=== PATIENT | female | born 1980 | race Caucasian/White ===

== ENCOUNTER 2023-05-21 13:22 | Emergency (ER) | payer OTHER, SELFPAY ==
[2023-05-21 13:24] VITALS: BP 153/106; PULSE 90; RESP 18; TEMP 36.6; O2SAT 98
--- NOTE | 2023-05-21 14:46 | ED.BACK ---
HPI - Back Pain/Injury General Chief Complaint: Back Pain/Injury <Luana García PA-C - Last Filed: 05/21/23 16:32> Stated Complaint: severe back pain <HONEY Teran Last Filed: 05/21/23 16:32> Time Seen by Provider: 05/21/23 13:50 <Luana García PA-C - Last Filed: 05/21/23 16:32> History of Present Illness HPI Narrative: 42-year-old female with a history of s/p hysterectomy and chronic back pain presents to emergency department for acute on chronic low back pain. Patient states she has been treated by her PCP for while now with tizanidine which helps sometimes makes her sleepy. States last night the pain became significantly worse which prompted her to come to the ER today. She is reporting pain diffusely throughout her low back and radiates down the lateral aspect of her left leg to her knee. States she is scheduled on 05/29/[address] [facility]. She denies numbness in her groin, incontinence of her bowel or bladder, urinary retention. She is able ambulate. Denies dysuria or hematuria, fever, IV drug use, use of immunosuppressants. Denies recent injury trauma to her back. She has not taken anything today for pain. Patient states she had an MRI performed on 03/17/2023 ordered by her PCP. She has her My Chart available and is able to pull up results which are as followed: Impression 1. Multilevel lumbar spondylosis without significant narrowing of the spinal canal 2. Moderate to severe bilateral neural foraminal stenosis at L5-S1. There is severe facet osteoarthritis at these levels with reactive bone marrow <HONEY Teran Last Filed: 05/21/23 16:32> Related Data Allergies/Adverse Reactions: Allergies Allergy/AdvReac Type Severity Reaction Status Date / Time No Known Allergies Allergy Verified 05/21/23 13:30 <HONEY Teran Last Filed: 05/21/23 16:32> Review of Systems Review of Systems: CONSTITUTIONAL: Denies fever, chills, or sweats. EYES: Denies visual changes, redness, or discharge. ENT: Denies rhinorrhea, congestion, sore throat, or otalgia. CARDIOVASCULAR: Denies chest pain, palpitations, or edema. RESPIRATORY: Denies cough or dyspnea. GASTROINTESTINAL: Denies abdominal pain, nausea, vomiting, or diarrhea. GENITOURINARY: Denies dysuria or hematuria. SKIN: Denies rash or itching. MUSCULOSKELETAL: See HPI NEUROLOGIC: Denies headache, numbness, or weakness. PSYCHIATRIC: Denies anxiety or depression. <Luana García PA-C - Last Filed: 05/21/23 16:32> Exam Narrative: GENERAL: Well-appearing, well-nourished, and in no acute distress. HEAD: Normocephalic, atraumatic. NECK: Supple. BACK: Tenderness to the lumbar spine and throughout the lower back and paraspinous muscles. No overlying skin changes, step-offs or deformities. No overlying rashes. CHEST: Clear to auscultation. No respiratory distress. HEART: Regular rate and rhythm. No murmur heard. Normal peripheral pulses. ABDOMEN: Soft, nontender, nondistended, normal active bowel sounds. EXTREMITIES: Normal range of motion. No edema. SKIN: Warm, dry, no rash. NEURO: No focal deficits. Alert and oriented x3. No saddle anesthesia, sensation intact throughout. Dorsiflexion, plantar flexion, knee extension and flexion, hip extension 5/5 bilaterally. Left EHL strength 4/5. Right EHL is 5/5. DP pulses 2+ bilaterally. <Luana García PA-C - Last Filed: 05/21/23 16:32> Course DELIVERER MERCHANDISE/PA Physician Supervision I agree with midlevel documentation; I performed the medical decision making component of this evaluation. <Lyubov Pinto MD - Last Filed: 05/21/23 20:19> Vital Signs Vital signs: Vital Signs Temperature 98 F 05/21/23 13:24 Pulse Rate 90 05/21/23 13:24 Respiratory Rate 18 05/21/23 13:24 Blood Pressure 153/106 H 05/21/23 13:24 Pulse Oximetry 98 05/21/23 13:24 Oxygen Delivery Room Air 05/21/23 13:24 Temperature 98
[2023-05-21] MEDS: ACETAMINOPHEN 500 MG TABLET 1000 MG PO (14:52)
[2023-05-21] MEDS: dexAMETHasone SOD PHOS INJ 10 MG/ML 1 ML VIAL IM (14:52)
[2023-05-21] MEDS: KETOROLAC 30 MG/ML VIAL (*BKC) IM (14:52)
[2023-05-21] MEDS: CYCLOBENZAPRINE HCL 10 MG TABLET PO (14:52)
[2023-05-21] MEDS: LIDOCAINE 5% PATCH 1 PATCH TRANSDERM (15:07)
[2023-05-21 15:12] LABS: Appearance Urine Cloudy (Clear); Bacteria Urine 1+ /hpf; Bilirubin Urine Negative (Negative); Blood Urine Negative (Negative); Color Urine Yellow (Yellow); Glucose Urine UA Negative (Negative); Ketones Urine Trace mg/dL (Negative); Leukocyte Esterase Ur Negative LEU/UL (Negative); Nitrate Urine Negative (Negative); Non Pathogenic Casts 0-2; Protein Urine Negative (Negative); RBC Urine 0-2 /hpf (0-2); Specific Grav Ur 1.025 (1.001-1.035); Squamous Epithelial Cell Urine Few /hpf (Few); Urobilinogen Urine 0.2 mg/dL (<2.0); WBC Urine 0-5 /hpf (0-3)
[2023-05-21 15:54] LABS: Add Urine Microscopic? YES
[2023-05-21 16:39] VITALS: BP 142/87; PULSE 78; RESP 20; O2SAT 98
== END 2023-05-21 16:39 | disposition home or self-care (01) ==
PROVIDERS: Emergency Provider Physician Assistant
DX: M54.16 Radiculopathy, lumbar region (principal); Z90.710 Acquired absence of both cervix and uterus
CPT/HCPCS: 81001; 81025; 96372; 99284; A9270; J1100; J1885

== ENCOUNTER 2025-02-01 08:00 | Outpatient (CLI) | payer OTHER, SELFPAY ==
--- OUTSIDE RECORDS SUMMARY | 2023-08-13 07:30 | XMS_ITS ---
Author Organization [facility] Address [address] [address] Care Team Providers Care Cleaner Signs Name Role Phone WILL RICHMOND Primary Care Provider Unavailabl IAM Zuleta Unavailable [phone] FERMIN CASTANO Unavailable Unavailable zZachary, Carolyne Unavailable [phone] Encounters Encounter Location Date Provider Diagnosis [facility] [place] [address] [address] 08/13/2023 Carolyne zzzHolt Plan Of Treatment No Information Progress Notes * Iona RUSHINGOB: 0 (44 yo F)Acc No.[id number]:08/13/2023 Progress Notes Patient: Sparkle MENDEZ Provider: Ti Villalta NP :1980 A ge:42 Y S ex:Female Date:08/13/2023 Address:[place], [facility] Pcp:WILL RICHMOND Subjective: * Chief Complaints: * * Medical History: Objective: * Vitals: Assessment: Plan: * Treatment: * * Electronic signature of Wilfred Montoya on 02/01/2025 at 08:16 AM PAINTER SHIPYARD Sign off status: Pending * Provider: Ti Villalta NP Date: 0 08/13/2023 Generated for Leticia ng/Bryang/eTransmitting on: 1 04/04/2024 08:16 AM PAINTER SHIPYARD
--- OUTSIDE RECORDS SUMMARY | 2025-02-01 08:17 | XMS_ITS | Patient Health Record ---
Author Organization [facility] [employer] [facility] Address [address] [place] [address] Care Team Providers Care Assembly Detailer Name Role Phone WILL RICHMOND Primary Care Provider IAM Cuevas Unavailable [phone] FERMIN CASTANO Unavailable Unavailable Allergies No Known Allergies Reason For Referral No Information Medications Medication SIG (Take, Route, Fr equency, Duration) Notes Start Date End Date Status tiZANidine HCl 4 MG 1 capsule as needed Orally every 12 hours PRN Active Problems Problem Type SNOMED Code ICD Code Onset Dates Problem Status W/U Status Risk Notes Problem Sacroiliitis (41561783) Sacroiliitis (M46.1) Active confirmed Problem Lumbar radiculopathy (229565124) Lumbar radiculopathy (M54.16) Active confirmed Problem Lumbar spondylosis (444759387) Lumbar spondylosis (M47.816) Active confirmed Problem Pain in left leg (968037414) Left leg pain (M79.605) Active confirmed Plan Of Treatment No Information Insurance Providers Payer Name Payer Address Payer Phone Subscriber Number Group Number Insured Name Patient Relationship to Insured Coverage Start Date Coverage End Date [facility] [address] [place] [address] [id number] Sparkle Rushing Self - patient is the insured
--- OUTSIDE RECORDS SUMMARY | 2025-02-01 08:17 | XMS_ITS | Encounter Summary ---
Author Organization [facility] Address [address] [place] [address] Care Team Providers Care Air Table Operator Name Role Phone Vijay Mejia MD Primary Care Provider [phone] Reason for Visit * Reason Comments Medication Assistance Encounter Details Date Type Department Care Team (Late st Contact Info) Description 05/16/2023 Telephone [facility] Internal Medicine [address] [phone] Vijay Mejia MD [address] [place] [address] Medication Assistance Social History Tobacco Use Types Packs/Day Years Used Date Smoking Tobacco: Never Passive Smoke Exposure: Never Smokeless Tobacco: Never Alcohol Use Standard Drinks/Week Comments No 0 (1 standard drink = 0.6 oz pur e alcohol) Comments Unknown Sex and Gender Information Value Date Recorded Sex Assigned at Not on file 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 Topic: Medication Request >> May 16, 2023 3:33 PM Shandrea T wrote: Caller is requesting: Medication Question from Patient (Not involving new prescription or refill) Caller: Sparkle Rushing Patient/Caregiver Callback Number: [phone] Medication (Ask patient/caregiver to spell if possible): tirzepatide, weight loss, (Zepbound) 2.5 mg/0.5 mL Pen Injector Call Notes: patient called in and stated that her insurance told her she would need to go up a dosesince she been on it a month Preferred pharmacy: [facility] [address] [facility], [place] - [address] [place] [address] [place] [address] Hours: Not open 24 hour documented in this encounter Plan of Treatment Upcoming Encounters Date Type Department Care Team (Late st Contact Info) Description 06/03/2025 2:40 PM CDT Office Visit [facility] Care [facility] [address] [place] [address] [address] [place] [phone] Vijay Mejia MD [address] [place] [phone] documented as of this encounter Visit Diagnoses Not on filedocumented in this encounter Care Teams Air Table Operator Relationship Specialty Start Date End Date Vijay Mejia MD [address] [place] [id number] PCP - General Internal Medicine 01/29/12 documented as of this encounter
--- OUTSIDE RECORDS SUMMARY | 2025-02-01 08:17 | XMS_ITS | Encounter Summary ---
Author Organization [facility] Address 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 Gender Identity Not on file Sexual Orientation Not on file documented as of this encounter Plan of Treatment Upcoming Encounters Date Type Department Care Team (Late st Contact Info) Description 06/03/2025 2:40 PM CDT Office Visit [facility] Primary Care [address] [place] [address] [place] [address] [address] documented as of this encounter Procedures Procedure Name Priority Date/Time Associated Diagnosis Comments FIBRONECTIN Stat 06/15/2008 2:0 0 PM CDT documented in this encounter Results * FIBRONECTIN (06/15/2008 2:00 PM CDT) GESTATIONAL AGE, AMNIO FLD 27.1 Weeks [facility] FIBRONECTIN Negative Negative [facility] Comment:called Eduardo 9 17:08 & faxed Vaginal 06/15/2008 2:00 PM CDT 06/15/2008 4:13 PM CDT Narrative INTERFACE SYSTEM - 06/15/2008 5:09 PM CDT fax [phone] us [facility] Yy BODY FLUIDS AND STOOLS Final Res ult INTERFACE SYSTEM Refer to clinic/hospital department [facility] CLIA# [id number] [address] [place] [address] documented in this encounter Visit Diagnoses Not on filedocumented in this encounter Care Teams Jewel Supervisor Relationship Specialty [place] [address] [place] [address] PCP - General Internal Medicine 01/29/12 documented as of this encounter
--- OUTSIDE RECORDS SUMMARY | 2025-02-01 08:17 | XMS_ITS | Encounter Summary ---
Author Organization [facility] Address [address] [place] [address] Care Team Providers Care Facility Maintenance Helper Name Role Phone Vijay Mejia MD Primary Care Provider [phone] Reason for Visit * Reason Comments Question Encounter Details Date Type Department Care Team (Late st Contact Info) Description 03/27/2023 Telephone [facility] Internal Medicine [address] [address] Vijay Mejia MD [address] [place] [address] Question Social History Tobacco Use Types Packs/Day Years Used Date Smoking Tobacco: Never Passive Smoke Exposure: Never Smokeless Tobacco: Never Alcohol Use Standard Drinks/Week Comments No 0 (1 standard drink = 0.6 oz pur e alcohol) Comments Unknown Sex and Gender Information Value Date Recorded Sex Assigned at Not on file 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 Topic: Patient or Caregiver Communication Request >> Mar 27, 2023 11:14 AM Joan Garner wrote: Patient or Caregiver insisting that a message be sent to PCP Patient/Caregiver Callback Number: [phone] (home) [phone] (work) Call Notes: Patient called back to conform that 03/19 and 03/27 were added to her [facility] paperwork. Please call patient back. TH AND SAFETY INSTRUCTOR documented in this encounter Plan of Treatment Upcoming Encounters Date Type Department Care Team (Late st Contact Info) Description 06/03/2025 2:40 PM CDT Office Visit [facility] [address] [facility] [address] [place] [address] Vijay Mejia MD [address] [place] [phone] documented as of this encounter Visit Diagnoses Not on filedocumented in this encounter Care Teams Facility Maintenance Helper Relationship Specialty Start Date End Date Vijay Mejia MD [address] [place] [address] [phone] PCP - General Internal Medicine 01/29/12 documented as of this encounter
--- OUTSIDE RECORDS SUMMARY | 2025-02-01 08:17 | XMS_ITS | Patient Health Record ---
Author Organization [facility] Address [address] [facility] [address] [place] [address] Support Name Relationship Address Phone Sparkle Rushing Guarantor Unknown [phone] Allergies No Known Allergies Reason For Referral No Information Medications Medication SIG (Take, Route, Fr equency, Duration) Notes Start Date End Date Status Percocet 10-325 MG 1 tablet PO QID PRN Oral Active HYDROmorphone HCl 4 MG take 1 tablet by oral route 4 times a day MAX 4 PILLS A DAY Oral 4 Active Immunizations Vaccine Route Administration Date Status Comme nts Tdap IM Intramuscular 09/19/2015 Administered Problems Problem Type SNOMED Code ICD Code Onset Dates Problem Status W/U Status Risk Notes Problem Hypothyroidism (82279679) Hypothyroidism , unspecified (E03.9) Active confirmed Problem Disorder of thyroid gland (91105448) Disorder of thyroid, unspecified (E07.9) Active confirmed Problem Recurrent major depression in remission (85845237) Major depressive disorder, recurrent, in partial remission (F33.41) Active confirmed Problem 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 Problem Chronic pain syndrome (383761635) Chronic pain syndrome (G89.4) Active confirmed Dr. Lin. Sciatic nerve pain Problem Sciatica (10406668) Sciatica, unspecified side (M54.30) 013 Active confirmed SInce she had a baby she is having pain in the low back. Been managed with injections and now on pain medicine. Plan Of Treatment No Information Insurance Providers Payer Name Payer Address Payer Phone Subscriber Number Group Number Insured Name Patient Relationship to Insured Coverage Start Date Coverage End Date [employer] [address] [address] [place] [address] [id number] Sparkle Rushing Self - patient is the insured Medical (General) History Surgical History Surgery Date(Month/Year) Ceasarean section, Date of Procedure: 2015-09-19 carpal tunnel surgery: both hands. Dr. [place], Date of Procedure: 2015-09-19
--- OUTSIDE RECORDS SUMMARY | 2025-02-01 08:17 | XMS_ITS | Clinical Summary ---
Author Organization [facility] Address [address] [place] [address] Care Team Providers Care Tung Nut Grower Name Role Phone Vijay Mejia MD Primary Care Provider [phone] Allergies Active Allergy Reactions Criticality Noted Date Comments Bupropion Rash Low 09/14/2009 Fluoxetine Other (See Comments) 08/08/2009 FATIGUE Medications albuterol sulfate HFA 90 mcg/actuation aerosol inhalerIndicati ons:RTI (respiratory tract infection) Take 2 Puffs by inhalation every 6 hours as needed for Shortness of Breath. 6.7 Gram 2 3 Active Additional Information Patient not taking.Reported on 03/18/2023 fluconazole (DIFLUCAN) 150 mg tabletIndicatio ns:RTI (respiratory tract infection) Take 1 Tablet (150 mg) by mouth daily. For yeast infection 2 Tablet 2 3 Active Additional Information Patient not taking.Reported on 03/18/2023 acetaminophen (TYLENOL) 500 mg tablet Take 500 mg by mouth every 6 hours as needed. Active cyclobenzaprine (FLEXERIL) 10 mg tablet 10 MG ORALLY THREE TIMES A DAY NEEDED FOR MUSCLE SPASM 4 Active semaglutide, weight loss, (WEGOVY) 0.5 mg/0.5 mL Pen InjectorIndicat ions:Obesity (BMI 30.0-34.9) Inject 0.5 mL (0.5 mg) by subcutaneous injection every 7 days. 2 mL 11 4 Active semaglutide, weight loss, (WEGOVY) 1 mg/0.5 mL Pen Injector Inject 0.5 mL (1 mg) by subcutaneous injection every 7 days. 2 mL 11 5 Active Active Problems Problem Noted Date Diagnosed Date Lumbar spinal stenosis 03/27/2023 Overview (03/27/2023): 04/06 LUMBAR MRI-> Moderate to severe bilateral neural foraminal stenosis at L5- S1. There is severe facet osteoarthritis at this levels with reactive marrow edema. ->ARR NSURG Sciatica of left side 03/18/2023 Mild intermittent asthma without complication Influenza vaccination declined by patient 2021 History of herpes genitalis 02/16/2019 Chronic back pain 06/01/2014 Overview (06/21/2014): 06/25 PAIN CTR RECORDS RECEIVED, THINNED, SCANNED (OVs ONLY) Allergic rhinitis 06/01/2014 Resolved Problems Problem Noted Date Diagnosed Date Resolved Date Acquired hypothyroidism 06/11/2023 04/2 04/2024 Hirsutism 06/11/2023 06/03/2024 Moderate episode of recurren t major depressive disorder 06/11/2023 06/03/2024 Non morbid obesity due to excess calories 06/11/2023 06/03/2024 Rosacea, acne 03/18/2023 06/03/2024 COVID-19 vaccination declined 02/22/2021 06/03/2024 2019 novel coronavirus detected 05/25/2020 06/15/2020 Overview (05/25/2020): 05/22/20 [facility] ERV History of 2019 novel weir virus disease (COVID-19) 05/25/2020 01/23/2023 Overview (05/25/2020): 05/18/20 COVID + PER PT AT [facility] Obesity (BMI 35.0-39.9 without comorbidity) 02/16/2019 02/22/2021 Closed nondisplaced fracture of proximal phalanx of right index finger 10/14/2018 06/03/2024 Overview (06/11/2023): Last Assessment & Plan: Patient appears to have a nondisplaced fracture of the proximal phalanx of the index finger across the base of the condyles. There is no angulation or displacement. Patient should maintain the finger in the splint for the time being and avoid any heavy lifting pushing or pulling. She works in [employer] in should not be returning to work until cleared. It may take upwards of six weeks for the fracture to heal. Would like to reassess with follow-up films in three weeks. Abnormal Pap smear of cervix 06/08/2014 02/16/2019 Overview (06/08/2014): 09/2010- ASCUS- endocervical biopsy negative 12/22- repeat pap wnl Obesity (BMI 30.0-34.9) 06/01/201405/13 Anxiety and depression 06/01/201401/23 RTI (respiratory tract infection) 01/31/2012 02/16/2019 Chest pain 09/10/2011 06/03/2024 Low back pain 09/28/2009 04/27/2010 Overview (09/28/2009): 09/20 NON DEBILITATING SXS->EDUCATION PROVIDED, CONSERVATIVE TX RECOMMENDED, PRESCRIBED HYDROCODONE #30 X 0 Major depressive disorder 07/25/2009 Overview (04/27/2010): 07/25/09 EDUCATION PROVIDED, PRESCRIBED FLUOXETINE 20 MG/DAY, ALPRAZOLAM #60 X 0, PROVIDED W/E 07/16/09 THRU 08/08/09 08/08/09 STOPPED FLUOXETINE DUE TO FATIGUE, SUBSTITUTED CITALOPRAM 20 MG/DAY, EXTENDED W/E THROUGH 08/1708/17/09 TOLERATING CITALOPRAM BUT SXS UNCHANGED->PLAN TO EXTEND W/E THROUGH 09/05/09, OBSERVE, FUP 09/05/09 SYMPTOMS PARTIALLY IMPROVED BUT STILL DISABLING->EXTENDED W/E THROUGH 09/11/09, ADDED BUPROPION SR 150 MG BID 09/14/09 STOPPED BUPROPION DUE TO RASH, SUBSTITUTED PRISTIQ 50 MG DAILY FOR CITALOPRAM 09/28/09 FEELS 75% IMPROVED->PLAN TO CONTINUE PRISTIQ AND RTW 10/03/0904/21 SXS RESOLVED->PT STOPPED MEDS Screening for diabetes mellitus 04/13/2009 09/05/2009 Screening for lipoid disorders 04/13/2009 09/05/2009 Screening for nephropathy 04/13/2009 Screening for thyroid disorder 04/13/2009 09/05/2009 Screening for other and unsp ecified deficiency anemia 04/13/2009 09/05/2009 Routine gyne exam 04/13/2009 09/05/2009 Overview (04/13/2009): YEARLY RN PLASTICS EXAM RECOMMENDED Need for diphtheria-tetanus- pertussis (Tdap) vaccine 04/13/2009 09/05/2009 RTI (respiratory tract infection) 04/13/2009 09/05/2009 Overview (04/27/2009): 04/13/09 PRESCRIBED ZPAK, PRED TAPER, HYDROCODONE->CALL IF WORSENS, FUP IF PERSISTS 04/16/09 DUE TO WORSE COUGH->RECOMMENDED INCREASING HYDROCODONE, ADDED TESSALON, ARRANGED CXR 04/27/09 SAMPLED ADVAIR 250 BID TO TRY Encounters Date Type Department Care Team Description 01/26/2025 External Device Data [facility] ABSTRACTION Provider, Abstract 12/29/2024 External Device Data [facility] ABSTRACTION Provider, Abstract 12/15/2024 External Device Data [facility] ABSTRACTION Provider, Abstract 12/09/2024 External Device Data [facility] ABSTRACTION Provider, Abstract 12/08/2024 External Device Data [facility] ABSTRACTION Provider, Abstract from Last 3 Months Immunizations Immunization Administration Dates Next Due (ADACEL/BOOSTRIX)(10 YR UP) TDAP VACCINE, 0.5ML, IM 09/19/2015 Family History Medical History Relation Name Comments Hypertension Brother High Cholesterol Father Hypertension Father Anxiety Mother Kidney Disease Mother Seizures Mother Thyroid Disease Mother Healthy Sister 1 Healthy Sister 2 Relation Name Status Comments Brother Alive Father Alive Mother Alive Sister 1 Alive Sister 2 Alive Social History Tobacco Use Types Packs/Day Years Used Date Smoking Tobacco: Never Passive Smoke Exposure: Never Smokeless Tobacco: Never Tobacco Cessation:Counseling Given: No Alcohol Use Standard Drinks/Week Comments No 0 (1 standard drink = 0.6 oz pur e alcohol) Comments Unknown Sex and Gender Information Value Date Recorded Sex Assigned at Not on file Legal Sex Female 3:35 AM PRESCHOOL DIRECTOR Gender Identity Not on file Sexual Orientation Not on file Occupation Industry Job Start Date Job End Date Not on file Not on file Not on file Not on file Last Filed Vital Signs Vital Sign Reading Time Taken Comments Blood Pressure 100/64 06/03/2024 3:56 PM CDT Pulse 76 06/03/2024 3:56 PM CDT Temperature 37 C (98.6 F) 03/18/2023 1:16 PM PRESCHOOL DIRECTOR Respiratory Rate 18 12/02/2021 11:35 PM CDT Oxygen Saturation 97% 06/03/2024 3:56 PM CDT Inhaled Oxygen Concentration - - Weight 67.6 kg (149 lb) 06/03/2024 3:56 PM CDT Height 152.4 cm (5') 06/11/2023 8:22 AM CDT Body Mass Index 29.1 06/11/2023 8:22 AM CDT Plan of Treatment Upcoming Encounters Date Type Department Care Team (Late st Contact Info) Description 06/03/2025 2:40 PM CDT Office Visit [facility] [address] [address] [place] [id number] [address] Health Maintenance Due Date Last Done Comments Pre-Diabetes and Diabetes Screening 1980 HEPATITIS B VACCINES (1 of 3 - 19+ 3-dose series) 10/27/1998 HPV/Cotest (21-29) 10/27/2000 HPV/Cotest (30-65) 10/27/2009 CERVICAL CANCER SCREENING 12/01/2016 PAP SMEAR 12/01/2016 12/01/2013 INFLUENZA VACCINE (#1) 2024 COLORECTAL SCREENING 10/27/2024 Colorectal Cancer Screening 10/27/2024 FIT-DNA Q 3 years 10/27/2024 FIT/FOBT Q 1 year 10/27/2024 Flex Sig/CT Colonography Q 5 years 10/27/2024 BREAST CANCER SCREENING 03/31/2025 03/31/2024, 04/24 DTAP/TDAP/TD VACCINES (2 - T d or Tdap) 09/18/2025 09/19/2015 Preventative Visit- Commercial Completed 0 06/03/2024, 01/23/2023, 02/22/2021, Additional history exists HPV VACCINES (No Doses Required) Completed Procedures Procedure Name Priority Date/Time Associated Diagnosis Comments MAMMO 3D SRINIVASA DIAGNOSTIC BILAT W OR WO CAD Routine 03/31/2024 9:49 AM PRESCHOOL DIRECTOR Pain of breast from Last 3 Months or Most Recently Relevant to Health Maintenance Results * MAMMO 3D SRINIVASA DIAGNOSTIC BILAT W OR WO CAD (03/31/2024 9:49 AM PRESCHOOL DIRECTOR) Anatomical Region Laterality Modality Breast Bilateral Mammography 03/31/2024 9:52 AM PRESCHOOL DIRECTOR Impressions 03/31/2024 10:09 AM PRESCHOOL DIRECTOR IMPRESSION: BI-RADS Category 2, benign mammogram. Recommend yearly bilateral screening mammogram. Narrative 03/31/2024 10:09 AM PRESCHOOL DIRECTOR EXAM: MAMMO 3D SRINIVASA DIAGNOSTIC BILAT W OR WO CAD DATE: 03/31/2024 CLINICAL HISTORY: Bilateral breast pain in the periareolar regions in a patient with a family history of breast cancer TECHNIQUE: Bilateral full field digital mammography and digital tomosynthesis were performed in the CC, MLO and ML projections. Comparison was made to a prior bilateral mammogram performed April 24, 2021. CAD was utilized. FINDINGS: Scattered fibroglandular densities are present. The parenchymal pattern is unchanged compared to the prior exam. Markers were placed on the anterior upper outer breasts at the site of reported pain. An intramammary lymph node is again identified in the axillary tail of the right breast and another intramammary lymph node is again identified in the deep outer to upper outer left breast. There is no new suspicious asymmetry or mass, area of architectural distortion or suspicious microcalcification. Kandice Bragg MD MAMMO ORDERABLES Final Result from Last 3 Months or Most Recently Relevant to Health Maintenance Insurance [employer] [id number] [address] [employer] [id number] Care Teams Tung Nut Grower Relationship Specialty Start [place] [id number] [address] PCP - General Internal Medicine 01/29/12
--- OUTSIDE RECORDS SUMMARY | 2025-02-01 08:17 | XMS_ITS | Encounter Summary ---
Author Organization [facility] Address [address] [place] [address] Care Team Providers Care Director Organizational Name Role Phone Vijay Mejia MD Primary Care Provider [phone] Encounter Details Date Type Department Care Team (Late st Contact Info) Description 06/12/2006 Emergency [facility] Gustavo Hector Jr., MD [facility] [place] [id number] Er, Authorized P NO ADDRESS ON FILE Cellulitis and Abscess of Trunk (Primary Dx) Social History Tobacco Use Types Packs/Day Years Used Date Smoking Tobacco: Never Assessed Comments Unknown Sex and Gender Information Value Date Recorded Sex Assigned at Not on file Legal Sex Female 3:35 AM LEASE ANALYST Gender Identity Not on file Sexual Orientation Not on file documented as of this encounter Plan of Treatment Upcoming Encounters Date Type Department Care Team (Late Contact Info) Description 06/03/2025 2:40 PM CDT Office Visit [facility] Primary Care [address] [place] [address] [place] [phone] [address] documented as of this encounter Visit Diagnoses Diagnosis Cellulitis and abscess of trunk- Primary documented in this encounter Care Teams Director Organizational Relationship Specialty Start [place] [phone] [address] PCP - General Internal Medicine 01/29/12 documented as of this encounter
[2025-02-01 08:52] LABS: Hematocrit 40.6 % (37.0-47.0); Hemoglobin 13.7 g/dL (12.0-15.0); Mean Corpuscular HGB Conc 33.7 g/dl (32-36); Mean Corpuscular Hemoglobin 29.1 pg (26-34); Mean Corpuscular Volume 86.2 fl (80-100); Platelet Count Result 318 k/mm3 (150-375); Red Blood Count 4.71 M/mm3 (4.2-5.4); White Blood Count 7.8 K/mm3 (4.5-10.0)
[2025-02-01 09:23] LABS: Cholesterol 179 mg/dL (0-200); HDL Direct 48 mg/dL; Triglycerides 86 mg/dL (<150)
[2025-02-01 09:59] LABS: Thyroid Stimulating Hormone 4.250 uIU/mL (0.465-4.680)
[2025-02-01 10:18] LABS: Vitamin B12 245.0 pg/mL (239-931)
[2025-02-01 10:22] LABS: Hemoglobin A1C 4.9 % (<5.7)
== END 2025-02-01 08:01 | disposition home or self-care (01) ==
DX: Z00.00 Encounter for general adult medical examination without abnormal findings (principal)
CPT/HCPCS: 36415; 80061; 82607; 83036; 84443; 85027